=== PATIENT | female | born 1955 | race Caucasian/White ===

== ENCOUNTER 2023-03-25 09:50 | Outpatient (OUT) | payer MEDICARE, OTHER, SELFPAY ==
--- NOTE | 2023-03-25 09:58 | MM_ITS ---
Patient Name: RODRIGO MONTANO MR#: [id number] : 1955 Exam Date: 03/25/2023 Ordering Doctor: DR SUSANNAH CLOUD D.O. RADIOLOGY REPORT PROCEDURE: MM TOMOSYNTHESIS SCREENING BI COMPARISON: MG MAMM SCREEN CURTIS W CAD, 03/08/2020. MG MAMM SCREEN 3D CURTIS CAD, 05/20/2021. INDICATIONS: Screening Calculator Name NCI Breast Cancer Risk Assessment Tool 5 Year Breast Cancer Risk 1.70% Lifetime Breast Cancer Risk 5.00% Personal Breast Cancer No Personal Ovarian Cancer No Treatments None Family Cancers None LOCATION: [facility] BREAST COMPOSITION: Scattered areas fibroglandular density. FINDINGS: DIAGNOSTIC CATEGORY 2--BENIGN FINDING. NO CHANGE FROM COMPARISON. Scattered benign-appearing nodules are present. Scattered benign-appearing calcifications are present. Scattered benign-appearing lymph nodes are present. RIGHT BREAST: No significant suspicious finding. LEFT BREAST: No significant suspicious finding. RECOMMENDATIONS: ROUTINE MAMMOGRAM AND CLINICAL EVALUATION IN 12 MONTHS. PLEASE NOTE: A NORMAL MAMMOGRAM DOES NOT EXCLUDE THE POSSIBILITY OF BREAST CANCER. A CLINICALLY SUSPICIOUS PALPABLE LUMP SHOULD BE BIOPSIED. Dictated by: Ned Loja MD on 03/25/2023 at 12:42 Approved by: Ned Loja MD on 03/25/2023 at 12:44
[2023-03-25 10:40] LABS: Basophils Absolute Auto 0.1 10^3/uL (0.0-0.1); Basophils Percent Auto 0.8 % (0.2-2.0); Eosinophils Absolute Auto 0.1 10^3/uL (0.0-0.7); Eosinophils Percent Auto 1.2 % (0.9-7.0); Hematocrit 41.4 % (36.0-48.0); Hemoglobin 14.1 g/dL (12.0-16.0); Immature Granulocytes Abs Auto 0.02 10^3/uL (0.00-0.03); Immature Granulocytes Pct Auto 0.3 % (0.0-0.5); Lymphocytes Percent Auto 27.1 % (20.5-60.0); Mean Corpuscular HGB Conc 34.1 g/dL (29.9-35.2); Mean Corpuscular Hemoglobin 28.9 pg (26.7-34.0); Mean Corpuscular Volume 84.8 fL (81.0-99.0); Mean Platelet Volume 8.5 fL (9.5-13.5); Monocytes Absolute Auto 0.4 10^3/uL (0.3-0.8); Monocytes Percent Auto 5.8 % (1.7-12.0); Neutrophils Absolute Auto 4.7 10^3/uL (1.4-6.5); Neutrophils Percent Auto 64.8 % (43.0-75.0); Platelet Count 230 10^3/uL (150-450); Red Blood Count 4.88 10^6/uL (4.20-5.40); Red Cell Distribution Width 14.3 % (11.0-15.0); White Blood Count 7.3 10^3/uL (4.0-11.0)
[2023-03-25 10:49] LABS: Estimated Average Glucose 169 mg/dL; Glycohemoglobin A1C 7.5 % (4.5-6.2)
[2023-03-25 11:44] LABS: Alanine Aminotransferase 45 U/L (14-59); Albumin Globulin Ratio 1.1; Albumin Level 4.2 g/dL (3.4-5.0); Alkaline Phosphatase 71 U/L (46-116); Anion Gap 15.6; Aspartate Amino Transferase 26 U/L (15-37); BUN Creatinine Ratio 14.4; Bilirubin Total 0.4 mg/dL (0.2-1.0); Calcium 9.3 mg/dL (8.5-10.1); Carbon Dioxide 26.4 mmol/L (21.0-32.0); Chloride 101 mmol/L (98-107); Chol HDL Ratio 6.2; Cholesterol 271 mg/dL (<=200); Estimated GFR (African America >60 (>=60); Estimated GFR (Non-African Ame 57 (>=60); Globulin 3.8 g/dL; Glucose 177 mg/dL (74-106); HDL Cholesterol 44 mg/dL (40-60); Sodium 139 mmol/L (136-145); Triglycerides 167 mg/dL (<=150); VLDL CHOLESTEROL 33.4 mg/dL
== END 2023-03-25 09:51 | disposition home or self-care (01) ==
LOC: MAMMO 09:50
PROVIDERS: PCP Family Medicine; Visit Provider Family Medicine
DX: Z12.31 Encounter for screening mammogram for malignant neoplasm of breast (principal); N18.30 Chronic kidney disease, stage 3 unspecified; E11.22 Type 2 diabetes mellitus with diabetic chronic kidney disease; I12.9 Hypertensive chronic kidney disease with stage 1 through stage 4 chronic kidney disease, or unspecified chronic kidney disease
CPT/HCPCS: 36415; 77063; 77067; 80053; 80061; 83036; 85025

== ENCOUNTER 2024-11-07 09:34 | Outpatient (OUT) | payer MEDICARE, SELFPAY ==
--- OUTSIDE RECORDS SUMMARY | 2024-05-30 10:45 | XMS_ITS ---
Author Organization [facility] in [place] Address [address] [place] [address] Care Team Providers Care Career Development Manager Name Role Phone Mayur Dubon Primary Care Provider REASON FOR VISIT mwv Encounters Encounter Location Date Provider Diagnosis [facility] [address] [place] [address] 05/30/2024 Mayur Dubon Plan Of Treatment No Information Progress Notes * Stormy MONTANOWillianOB: [birth year] (69 yo F)Acc No.[id number]:05/30/2024 UNLOCKED PROGRESS NOTE Progress Note Patient: Carol PRESCOTT Provider: Su Dubon DO :1955 A ge:69 Y S ex:Female Date:05/30/2024 Address:[address] [place], [place] [id number] Subjective: * Chief Complaints: * 1 . Mwv. * Medical History: Objective: * Vitals: Assessment: Plan: * Treatment: * * Electronic signature of Mynor Dubon DO, [phone] on 11/07/2024 at 09:37 AM EDT Sign off status: Pending Visit Status: C ANC (Cancelled) * Provider: Su Dubon DO Date: 0 05/30/2024 Generated for Printi ng/Faxing/eTransmitting on: 0 11/07/2024 09:37 AM EDT
--- OUTSIDE RECORDS SUMMARY | 2024-06-08 09:49 | XMS_ITS ---
Author Organization [facility] in [place] Address [address] [place] [address] Care Team Providers Care Clearance Diver Name Role Phone Mayur Dubon Primary Care Provider REASON FOR VISIT needs appt Encounters Encounter Location Date Provider Diagnosis [facility] [place] [address] 06/08/2024 Mayur Dubon Plan Of Treatment No Information Progress Notes * Fabio MONTANOOB: [birth year] (69 yo F)Acc No.[id number]:06/08/2024 Patient: Carol PRESCOTT :1955 A ge:69 Y S ex:Female Address:[address] [place] [place] [address], [address] * true * Date: Generated for Angelika porter/Sammie/eTransmitting on: 0 11/07/2024 09:37 AM EDT
--- OUTSIDE RECORDS SUMMARY | 2024-06-15 07:00 | XMS_ITS ---
Author Organization [facility] in [place] Address [address] [place] [address] Care Team Providers Care Sexer Name Role Phone Mayur Dubon Primary Care Provider [phone] Allergies Allergen (clinical drug ingredient) Drug/Non Drug Allergy documented on EMR Reaction Allergy Type Onset Date Status erythromycin Erythromycin Base Unknown Drug Allergy Active angiotensin-converting enzyme inhibitor (FN) MARCELL Inhibitors cough Drug Allergy Acti ve Latex Latex Unknown Allergy Active nickel Nickel Unknown Allergy Active Penicillin Unknown Drug Allergy Active Results Component Value Reference Range Notes HEMOGLOBIN A1C - IN OFFICE Reviewed date:06/15/2024 12:07:55 PM Interpretation:7.1 Performing Lab: Notes/Report: 7.1 HEMOGLOBIN A1C - IN OFFICE 7.1 4.4 - 6.4 Cologuard Reviewed date:08/10/2024 11:42:21 AM Interpretation:negative Performing Lab: Notes/Report: COLOGUARD RESULT REPORTABLE Negative Negative NEGATIVE TEST RESULT. A negative Cologuard result indicates a low likelihood that a colorectal cancer (CRC) or advanced adenoma (adenomatous polyps with more advanced pre-malignant features) is present. The chance that a person with a negative Cologuard test has a colorectal cancer is less than 1 in 1500 (negative predictive value >99.9%) or has an advanced adenoma is less than 5.3% (negative predictive value 94.7%). These data are based on a prospective cross-sectional study of 10,000 individuals at average risk for colorectal cancer who were screened with both Cologuard and colonoscopy. (Hardy Abdi al, N Engl J Med 2014;370(14):1589-4665) The normal value (reference range) for this assay is negative. COLOGUARD RE-SCREENING RECOMMENDATION: Periodic colorectal cancer screening is an important part of preventive healthcare for asymptomatic individuals at average risk for colorectal cancer. Following a negative Cologuard result, the [place] [employer] Society and U.S. Multi-Society Task Force screening guidelines recommend a Cologuard re-screening interval of 3 years. References: [place] [employer] Society Guideline for Colorectal Cancer Screening: https://www.cancer.org/cancer/col rk-qngmln-kngvrc/detection-diagno sis-staging/acs-recommendations.h tml.; Maurice DK, Freddy CR, Emily RiceK, Colorectal Cancer Screening: Recommendations for Physicians and Patients from the U.S. Multi-Society Task Force on Colorectal Cancer Screening , Am J Gastroenterology 2017; 112:2005-1443. TEST DESCRIPTION: Composite algorithmic analysis of stool DNA-biomarkers with hemoglobin immunoassay. Quantitative values of individual biomarkers are not reportable and are not associated with individual biomarker result reference ranges. Cologuard is intended for colorectal cancer screening of adults of either sex, 45 years or older, who are at average-risk for colorectal cancer (CRC). Cologuard has been approved for use by the U.S. FDA. The performance of Cologuard was established in a cross sectional study of average-risk adults aged 50-84. Cologuard performance in patients ages 45 to 49 years was estimated by sub-group analysis of near-age groups. Colonoscopies performed for a positive result may find as the most clinically significant lesion: colorectal cancer [4.0%], advanced adenoma (including sessile serrated polyps greater than or equal to 1cm diameter) [20%] or non- advanced adenoma [31%]; or no colorectal neoplasia [45%]. These estimates are derived from a prospective cross-sectional screening study of 10,000 individuals at average risk for colorectal cancer who were screened with both Cologuard and colonoscopy. (Hardy Abdi al, N Engl J Med 2014;370(14):1457-7432.) Cologuard may produce a false negative or false positive result (no colorectal cancer or precancerous polyp present at colonoscopy follow up). A negative Cologuard test result does not guarantee the absence of CRC or advanced adenoma (pre-cancer). The current Cologuard screening interval is every 3 years. ([place] [employer] Society and U.S. Multi-Society Task Force). Cologuard performance data in a 10,000 patient pivotal study using colonoscopy as the reference method can be accessed at the following location: www.[employer]/results. Additional description of the Cologuard test process, warnings and precautions can be found at www.[employer].com. REASON FOR VISIT [facility] Medications Medication SIG (Take, Route, Frequency, Duration) Notes Start Date End Date Status hydroCHLOROthiazide 12.5 MG TAKE 1 TABLE T BY MOUTH ONCE EVERY MORNING NEEDED Active Fish Oil Active Losartan Potassium 100 MG TAKE 1 TABLET BY MOUTH EVERY DAY Active Alendronate Sodium 70 MG TAKE 1 TABLET B Y MOUTH WITH PLAIN WATER BY MOUTH 30 MIN BEFORE 1ST FOOD/DRINK/MEDICINE OF THE DAY Active Multivitamin Active Drysol 20 % 1 application at bedtime Externally daily prn for 30 days 11/17/2022 Unknown Phentermine HCl 37.5 MG 1 tablet before breakfast Orally Once a day for 30 days 06/15/2024 Active amLODIPine Besylate 5 MG 1 tablet Orally Once a day Active Triamcinolone Acetonide 0.1 % APPLY ONCE EXTERNALLY TWICE A DAY NEEDED for 30 Active Social History Tobacco Use: Social History Observation Description Date Details (start date - stop date) Never Smoker NA - NA Tobacco Use/Smoking Question Answer Notes Patient is a nonsmoker Vital Signs Weight 180.4 lbs 06/15/2024 Height 63 in 06/15/2024 Blood pressure systolic 140 mm Hg 06/15/19 25 Blood pressure diastolic 90 mm Hg 025 Heart Rate 103 /min 06/15/2024 Respiratory Rate 16 /min 06/15/2024 BMI 31.95 kg/m2 06/15/2024 Oximetry 98 % 06/15/2024 Encounters Encounter Location Date Provider Diagnosis [facility] [address] [place] [address] 06/15/2024 Mayur Dubon Encounter for Medica re annual wellness exam Z00.00 ; Abnormal weight gain R63.5 ; Essential (primary) hypertension I10 ; Pure hypercholesterolemia, unspecified E78.00 ; Type 2 diabetes mellitus with diabetic chronic kidney disease E11.22 ; Chronic kidney disease, stage 3 unspecified N18.30 ; Other fatigue R53.83 ; Vitamin D deficiency, unspecified E55.9 ; Encounter for screening for malignant neoplasm of colon Z12.11 ; Other obesity due to excess calories E66.09 ; Body mass index [BMI] 31.0-31.9, adult Z68.31 ; Obesity, class 1 E66.811 ; Other specified disorders of bone density and structure, unspecified site M85.80 ; Encounter for screening mammogram for malignant neoplasm of breast Z12.31 and Asymptomatic menopausal state Z78.0 Assessments Encounter Date Diagnosis (ICD Code) Assessment Notes Treatment Notes Treatment Clinical Notes Section Notes 06/15/2024 Encounter for Medicare annual wellness exam (ICD-10 - Z00.00) set up cologuard diet/exercise rtc 1 year rec chapo yearly rec dexa q2 years rec flu shot yearly rec dtap q10 years rec pn vaccine q5 years rec shingrix rec rsv vaccine labs yearly eye and dental exams yearly 06/15/2024 Abnormal weight gain (ICD-10 - R63.5) oarrs ok diet/exercise rtc 1 month if wishes to continue 06/15/2024 Essential (primary) hypertension (ICD-10 - I10) controlled at home goal <130/80 diet/exercise monitor bmp and urine microalbumin yearly 06/15/2024 Pure hypercholesterole collins, unspecified (ICD-10 - E78.00) labs - change tx based on this diet/exercise LDL goal <70 rec statin uncontrolled 06/15/2024 Type 2 diabetes mellitus with diabetic chronic kidney disease (ICD-10 - E11.22) a1c today uncontrolled eye exam yearly - dilated foot exam daily bs check daily diet/exercise rtc 6 months rec farxiga 06/15/2024 Chronic kidney disease, stage 3 unspecified (ICD-10 - N18.30) monitor bmp rec neph rec farxiga 06/15/2024 Other fatigue (ICD-10 - R53.83) labs - tx if abnormal diet/exercise 06/15/2024 Vitamin D deficiency, unspecified (ICD-10 - E55.9) monitor lab and adjust tx based on results stable 06/15/2024 Encounter for screening for malignant neoplasm of colon (ICD-10 - Z12.11) 06/15/2024 Other obesity due to excess calories (ICD-10 - E66.09) diet/exercise due to HTN/DM - see above 06/15/2024 Body mass index [BMI] 31.0-31.9, adult (ICD-10 - Z68.31) 06/15/2024 Obesity, class 1 (ICD-10 - E66.811) 06/15/2024 Other specified disorders of bone density and structure, unspecified site (ICD-10 - M85.80) 06/15/2024 Encounter for screening mammogram for malignant neoplasm of breast (ICD-10 - Z12.31) 06/15/2024 Asymptomatic menopausal state (ICD-10 - Z78.0) Plan Of Treatment Medication Medication Name Sig Start Date Stop Date Notes hydroCHLOROthiazide 12.5 MG TAKE 1 TABLE T BY MOUTH ONCE EVERY MORNING NEEDED Fish Oil Losartan Potassium 100 MG TAKE 1 TABLET BY MOUTH EVERY DAY Alendronate Sodium 70 MG TAKE 1 TABLET B Y MOUTH WITH PLAIN WATER BY MOUTH 30 MIN BEFORE 1ST FOOD/DRINK/MEDICINE OF THE DAY Phentermine HCl 37.5 MG 1 tablet before breakfast Orally Once a day for 30 days 06/15/2024 amLODIPine Besylate 5 MG 1 tablet Orally Once a day Treatment Notes Assessment Notes Encounter for Medicare annual wellness e xam set up cologuard diet/exercise rtc 1 year rec chapo yearly rec dexa q2 years rec flu shot yearly rec dtap q10 years rec pn vaccine q5 years rec shingrix rec rsv vaccine labs yearly eye and dental exams yearly Abnormal weight gain oarrs ok diet/exercise rtc 1 month if wishes to continue Essential (primary) hypertension controlled at home goal <130/80 diet/exercise monitor bmp and urine microalbumin yearly Pure hypercholesterolemia, unspecified labs - change tx based on this diet/exercise LDL goal <70 rec statin uncontrolled Type 2 diabetes mellitus wit h diabetic chronic kidney disease a1c today uncontrolled eye exam yearly - dilated foot exam daily bs check daily diet/exercise rtc 6 months rec farxiga Chronic kidney disease, stage 3 unspecif ied monitor bmp rec neph rec farxiga Other fatigue labs - tx if abnormal diet/exercise Vitamin D deficiency, unspecified monitor lab and adjust tx based on results stable Other obesity due to excess calories diet/exercise due to HTN/DM - see above Pending Test Test Name Order Date LIPID PANEL (CHOL/TRIG/HDL/LDL) 06/15/19 25 CBC WITH DIFF 06/15/2024 MICROALBUMIN with ALB/CREAT RATIO, URINE (MALB)) 06/15/2024 T3 FREE (T3FR) 06/15/2024 T4 FREE (T4FR) 06/15/2024 TSH 06/15/2024 VITAMIN D, 25 LEVEL (TOTAL) 06/15/2024 DEXA Axial Skeleton (hips, pelvis, spine )* 06/15/2024 VITAMIN B12 LEVEL AND FOLATE (FOLIC ACID ) 06/15/2024 MAMM SCREEN BILAT JYOTHI 3D GLOBAL* 2024 CMP (COMP MET CARRENO) w/eGFR CKD-EPI 2024 Next Appt Details Follow Up: 6 Months, Reason: Progress Notes * Fabio MONTANOOB: [birth year] (69 yo F)Acc No.[id number]:06/15/2024 Progress Note Patient: Carol PRESCOTT Provider: Su Dubon DO :1955 A ge:69 Y S ex:Female Date:06/15/2024 Address:[address] [place], [place] [id number] Check In:10:42 AM ESTCheck O ut:12:12 PM EST Subjective: * Chief Complaints: * M CW * HPI: Nakia nash Annual Wellness Visit: Patient presents today for mwv. Patient states she wants to see about going back on adipex.-MV - - - - - - - - - 03/2023 chapo - normal 03/2023 labs reviewed - cbc normal, A1c 7.5, Cr 0.97, GFR 57, TC 271, TG 167, HDL 44, LDL 194 - - - - - - -- no problems with adipex in the past using treadmill do adipex to mile romero - - - - - - - - no f/c/URI s/s no cough no GERD no dysphagia - - - - - - -- no N/V/D/C/blood no dysuria/hematuria +stress incontinence - - - - - - - - no rashes no vision/hearing problems no CP/SOB/dizzy/palp - - - - - - - bp at home 120-130's/60-70's not checking BS at home - - - - - tolerating all meds without side effects. [place] [facility] [place]? Visual Acuity: N /A. Other Providers of Care: C are Team reviewed with patient: Phillip burr, and updates made in [place] of Care Physical Activity: D o you exercise regularly? Y es T ype of exercise: W janineing F requency: 4 X a week Nutrition/Diet: O n a typical day, how many servings of fruits and vegetables do you consume? 3 I n a typical week, how many servings of fried or high fat (such as cheese, fatty meat) do you consume? 3 I n a typical week, how many servings of high fiber or whole grain foods do you consume? 7 Seat Belt: D o you always use your seat belt in your car??Yes A re you having difficulties driving your car??No C an you get to places out of walking distance without help? Y es Dental: H ow would you describe the condition of your mouth and teeth, including any false teeth or dentures? Cheryl staples good Medication List Follow-Up: D uring the past four weeks, how much bodily pain do you have? N o pain D o you have a current opioid prescription??No Self Assessment of Health: H ow would you rate your overall health the past four weeks? E xcellent H ow confident are you that you can control and manage most of your health problems? Cheryl staples confident H ow have things been going for you during the past four weeks? P retty well D uring the past four weeks, was someone available to help you if you needed and wanted help? Y es, as much as I wanted (Example: if you felt nervous, lonely, or blue; got sick and had to stay in bed; needed someone to talk to; help with daily chores; or needed help just taking care of yourself) D o you have any sexual problems? N o D o you have any troubles eating well? N o D o you have any problems with tiredness or fatigue? N o H ave you noticed any hearing difficulties??Yes Sun Exposure: D o you protect yourself from over exposure to the sun when outdoors? Y es Mental Wellness: D uring the past four weeks, how much have you been bothered by emotional problems such as feeling anxious, depressed, irritable, sad, or downhearted and blue? N ot at all D uring the past four weeks, has your physical and emotional health limited your social activities with family, friends, neighbors, or groups??Not at all Functional Ability and Safety Screening: D o you need assistance with any of the following? Select all that apply. N one D oes your home have rugs in the hallway, lack grab bars in the bathroom, lack handrails on the stairs or have poor lighting? N o D o you feel unsteady and/or dizzy when standing or walking? N o D o you have smoke detectors in your home and routinely change the batteries? N o D o you have a fire extinguisher and know how to use it properly? Y es D o you have any problems with your living situation, food, transportation, utilities, or safety? N o Cognitive Screening: H ave you experienced any memory issues or problems with thinking? N o H ave your family members, friends, caretakers, or others raised any concerns? N o D o you get confused or easily distracted more than you used to? N o H as your ability to concentrate seem to have declined recently? N o End of Life Planning: D o you have a living will? N o D o you have a Durable Power of Software Engineer? N o W ould you like to discuss this topic today??No SDOH A gree to complete Social Determinants of Health questionnaire Y es W ithin the past 12 months, did you worry that your food would run out before you got money to buy more? N o W ithin the past 12 months, did the food you bought just not last and you didn't have money to buy more? N o W ithin the past 12 months, have you ever stayed: outside, in a car, in a a tent, in an overnight custodial, or temporarily in someone else's home??No A re you worried about losing your housing??No W ithin the past 12 months, have you been able to get utilities (heat, electricity) when it was really needed? N o W ithin the past 12 months, has a lack of transportation kept you from medical appointments or from doing things needed for daily living? N o D o you feel physically or emotionally unsafe where you currently live? N o W ould you like help with any of these needs that you have identified? N o D epression Screening: PHQ-2 (2015 Edition) L ittle interest or pleasure in doing things??Not at all F eeling down, depressed, or hopeless? N ot at all T otal Score 0 * ROS: G eneral/Constitutional: Significant change in weight d enies. E xercise Intolerance d enies. N ight sweats d enies. F ever d enies. E yes: Dry eyes D enies. V ision changes d enies. ? E NMT: Sore Throat d enies. N ose Bleeds d enies. D ifficulty hearing d enies. E ar pain d enies. N ose/sinus problems d enies. S noring d enies. B leeding gums d enies. D ry mouth d enies. M outh ulcers denies. O ral abnormalities d enies. T eeth problems d enies. C ardiovascular: Shortness of Breath w/Walking d enies. S hortness of Breath w/lying flat d enies. A rm pain on exertion d enies. C hest pain d enies.?Heart murmur d enies. P alpitations d enies. R espiratory: Coughing up blood d enies. C ough d enies. S hortness of breath d enies. W heezing d enies. G astrointestinal: Change in appetite d enies. V omiting blood d enies. A bdominal pain d enies. C onstipation d enies. D iarrhea d enies. V omiting d enies. G enitourinary: Dysuria/Increased Frequency d enies. H ematuria d enies. I ncontinence , admits. D ifficulty urinating d enies. M usculoskeletal: Swelling in the extremities d enies. A rthralgias/joint pain D enies. B ack pain d enies. W eakness of muscles d enies. M uscle aches d enies. S kin: Jaundice D enies. M ole(s) d enies. R joycelyn d enies. N eurologic: Dizziness d enies. L oss of consciousness d enies.?Numbness d enies. W eakness d enies. H eadache d enies. S eizures d enies. P sychiatric: Alcohol abuse d enies. F eeling safe in relationship?denies. D epression d enies. A nxiety d enies. S leep Disturbances d enies. E ndocrine: Fatigue a dmits. H ematologic/Lymphatic: Swollen Glands d enies. B ruising d enies. ? A llergy/Immunology: Runny nose d enies. S inus pressure d enies. F requent sneezing d enies. H kendall d enies. I tching d enies. * Active Problem List I10 Essential (primary) hypertension Modified On:12/18/2022 Status:confirmed E78.00 Pure hypercholestero lemia, unspecified Modified On:11/17/2022 Status:confirmed E11.22 Type 2 diabetes ye itus with diabetic chronic kidney disease Modified On:11/17/2022 Status:confirmed N18.30 Chronic kidney disea se, stage 3 unspecified Modified On:11/17/2022 Status:confirmed Z68.34 Body mass index [BMI ] 34.0-34.9, adult Modified On:11/17/2022 Status:confirmed E66.9 Obesity, unspecified Modified On:11/17/2022 Status:confirmed E66.09 Other obesity due to excess calories Modified On:03/02/2024 Status:confirmed Z68.31 Body mass index [BMI ] 31.0-31.9, adult Modified On:03/02/2024 Status:confirmed N18.31 Chronic kidney disea se, stage 3a Modified On:03/02/2024 Status:confirmed E55.9 Vitamin D deficiency , unspecified Modified On:06/15/2024 Status:confirmed * Medical History: * Surgical History: c olonoscopy - normal 02/21/15b/l eyelid lifts b/l cataracts 2012uterine mass removed meniscus repair 2020 * Hospitalization/Major Diagno stic Procedure: N o Hospitalization History. * Family History: M other: cva, diagnosed with Unspecified heart disease. F ather: diagnosed with Unspecified heart disease. * Social History: T obacco Use: T obacco Use/Smoking P atient is a n onsmoker H ousehold: H ousehold M arital status: m arried * Medications: T akingAlendronate Sodium 70 MG Tablet TAKE 1 TABLET BY MOUTH WITH PLAIN WATER BY MOUTH 30 MIN BEFORE 1ST FOOD/DRINK/MEDICINE OF THE DAY amLODIPine Besylate 5 MG Tablet 1 tablet Orally Once a day Fish Oil hydroCHLOROthiazide 12.5 MG Tablet TAKE 1 TABLET BY MOUTH ONCE EVERY MORNING NEEDED Losartan Potassium 100 MG Tablet TAKE 1 TABLET BY MOUTH EVERY DAY Multivitamin Triamcinolone Acetonide 0.1 % Cream APPLY ONCE EXTERNALLY TWICE A DAY NEEDED Taking Alendronate Sodium 70 MG Tablet TAKE 1 TABLET BY MOUTH WITH PLAIN WATER BY MOUTH 30 MIN BEFORE 1ST FOOD/DRINK/MEDICINE OF THE DAY Taking amLODIPine Besylate 5 MG Tablet 1 tablet Orally Once a day Taking Fish Oil Taking hydroCHLOROthiazide 12.5 MG Tablet TAKE 1 TABLET BY MOUTH ONCE EVERY MORNING NEEDED Taking Losartan Potassium 100 MG Tablet TAKE 1 TABLET BY MOUTH EVERY DAY Taking Multivitamin Taking Triamcinolone Acetonide 0.1 % Cream APPLY ONCE EXTERNALLY TWICE A DAY NEEDED Not-Taking/PRNPhentermine HCl 37.5 MG Tablet 1 tablet before breakfast Orally Once a day Not-Taking/PRN Phentermine HCl 37.5 MG Tablet 1 tablet before breakfast Orally Once a day UnknownDrysol(Aluminum Chloride) 20 % Solution 1 application at bedtime Externally daily prn Medication List reviewed and reconciled with the patientUnknown Drysol(Aluminum Chloride) 20 % Solution 1 application at bedtime Externally daily prn Medication List reviewed and reconciled with the patient * Allergies: P enicillinLatexNickelErythromycin BaseACE Inhibitors: coughno[Allergies Verified] Objective: * Vitals: W t:180.4lbs, Ht: 63 in, BP:140/90mm Hg, HR:103/min, RR:16/min, BMI:31.95Index, Oxygen sat %:98%, Ht-cm: 160.02 cm, Wt-k.83 kg. * Examination: G eneral Examination: GENERAL APPEARANCE: h ealthy Appearing , well nourished , well developed Level of distress: NAD, a mbulating normally, obese. ENMT: E ACs clear, TMs clear, no hearing loss, no lesions on external ears, nares patent, nasal passages clear, no sinus tenderness, no nasal discharge, no mouth or lip ulcers, no bleeding gums, moist mucous membranes, no erythema, no exudates. HEAD: n ormocephalic, atraumatic. EYES: n on-injected, no discharge, no pallor, PERRLA , EOMI, s clera non-icteric, peripheral vision grossly intact, acuity grossly intact. LUNGS: n o dyspnea, breath sounds normal , good air movement, CTA except as noted, no wheezing, no rales/crackles, no rhonchi. CARDIO: n ot displaced, RRR, S1, S2 normal , no murmurs, rubs, gallops , no carotid bruits, normal throughout. ABDOMEN: n ormal bowel sounds , soft, non tender, not distended, no guarding, no rebound tenderness, no masses, no CVA tenderness, liver non tender, no hepatomegaly. BACK: n ormal curvature. MUSCULOSKELETAL: n ormal motor strength, normal tone, normal movement of all extremities, no bony abnormalities, no contractures, no malalignment, no tenderness. SKIN: n o rash, no lesions, no ulcer, no abnormal nevi, no induration, no nodules, good turgor, no jaundice. EXTREMITIES: No edema. NEUROLOGIC: n ormal gait, normal station, cranial nerves grossly intact, sensation grossly intact, no tremor. PSYCH: j udgement and insight good, active and alert, normal mood, normal affect, orientation to time, to place, to person, recent memory normal, remote memory normal. NECK/THYROID: N robert supple, trachea midline, no masses, FROM, no cervical LAD, no enlargement, non-tender, no nodules. Assessment: * Assessment: 1. E ncounter for Medicare annual wellness exam - Z00.00 (Primary) 2 . A bnormal weight gain - R63.5 3 . E ssential (primary) hypertension - I10 4 . P ure hypercholesterolemia, unspecified - E78.00 5 . T ype 2 diabetes mellitus with diabetic chronic kidney disease - E11.22 6 . C hronic kidney disease, stage 3 unspecified - N18.30 7 . O ther fatigue - R53.83 ?8. V itamin D deficiency, unspecified - E55.9 9 . E ncounter for screening for malignant neoplasm of colon - Z12.11 1 0. O ther obesity due to excess calories - E66.09 1 1. B darrion mass index [BMI] 31.0-31.9, adult - Z68.31 ?12. O besity, class 1 - E66.811 1 3. O ther specified disorders of bone density and structure, unspecified site - M85.80 1 4. E ncounter for screening mammogram for malignant neoplasm of breast - Z12.31 1 5. A symptomatic menopausal state - Z78.0 Plan: * Treatment: 2. A bnormal weight gain Refill Phentermine HCl Tablet, 37.5 MG, 1 tablet before breakfast, Orally, Once a day, 30 days, 30, Refills 0. Notes: oarrs ok diet/exercise rtc 1 month if wishes to continue 3. E ssential (primary) hypertension Continue amLODIPine Besylate Tablet, 5 MG, 1 tablet, Orally, Once a day; C ontinue hydroCHLOROthiazide Tablet, 12.5 MG, TAKE 1 TABLET BY MOUTH ONCE EVERY MORNING NEEDED; C ontinue Losartan Potassium Tablet, 100 MG, TAKE 1 TABLET BY MOUTH EVERY DAY. L AB: CMP (COMP MET CARRENO) w/eGFR CKD-EPI Notes: controlled at home goal <130/80 diet/exercise monitor bmp and urine microalbumin yearly 4. P ure hypercholesterolemia, unspecified Continue Fish Oil. L AB: LIPID PANEL (CHOL/TRIG/HDL/LDL) Notes: labs - change tx based on this diet/exercise LDL goal <70 rec statin uncontrolled 5. T ype 2 diabetes mellitus with diabetic chronic kidney disease L AB: MICROALBUMIN with ALB/CREAT RATIO, URINE (MALB)) L AB: HEMOGLOBIN A1C - IN OFFICE (Collection Date & Time - 06/15/2024) Notes: a1c today uncontrolled eye exam yearly - dilated foot exam daily bs check daily diet/exercise rtc 6 months rec farxiga 6. C hronic kidney disease, stage 3 unspecified Notes: monitor bmp rec neph rec farxiga 7. O ther fatigue L AB: CBC WITH DIFF L AB: T3 FREE (T3FR) L AB: T4 FREE (T4FR) L AB: TSH L AB: VITAMIN B12 LEVEL AND FOLATE (FOLIC ACID) Notes: labs - tx if abnormal diet/exercise 8. V itamin D deficiency, unspecified L AB: VITAMIN D, 25 LEVEL (TOTAL) Notes: monitor lab and adjust tx based on results stable 9. E ncounter for screening for malignant neoplasm of colon L AB: Cologuard 10. O ther obesity due to excess calories Notes: diet/exercise due to HTN/DM - see above 11. O ther specified disorders of bone density and structure, unspecified site Continue Alendronate Sodium Tablet, 70 MG, TAKE 1 TABLET BY MOUTH WITH PLAIN WATER BY MOUTH 30 MIN BEFORE 1ST FOOD/DRINK/MEDICINE OF THE DAY. 12. E ncounter for screening mammogram for malignant neoplasm of breast I maging: MAMM SCREEN BILAT JYOTHI 3D GLOBAL* 13.?Asymptomatic menopausal state?Imaging: DEXA Axial Skeleton (hips, pelvis, spine) Mayur Dubon 07/03/2024 08:24:58 PM EDT >Please call patient to schedule * Labs: * L ab: HEMOGLOBIN A1C - IN OFFICE (Collection Date & Time - 06/15/2024) 7 .1 Value Reference Range H EMOGLOBIN A1C - IN OFFICE 7.1 4.4 - 6.4 * Procedure Codes: G 0439 ANNUAL WELLNESS, [id number] HEMOGLOBIN; GLYCATED, Modifiers: QW * Preventive Medicine: Screenings/Counseling: F ALL RISK SCREENING Fall Risk Assessment: N o falls in the past year Are you afraid of falling? N o * Follow Up: 6 Months * * Sign off status: Completed Visit Status: C HK (Check Out) true * Provider: Su Dubon DO Date: 0 06/15/2024 Generated for Angelika porter/Sammie/Jenna on: 0 11/07/2024 09:37 AM EDT History and Physical Notes * HPI (History of Present Illness) Category Sub-Category Detail Notes Category Not es Medicare Annual Wellness Visit Type of Visit: Subsequent Annual Wellness Visit (SAWV) Cognitive Screening: Have you experience d any memory issues or problems with thinking?: No Have your family members, fr iends, caretakers, or others raised any concerns?: No Do you get confused or easily distracted more than you used to?: No Has your ability to concentrate seem to have declined recently?: No Self Assessment of Health: How would you rate your overall health the past four weeks?: Excellent How confident are you that y ou can control and manage most of your health problems?: Very confident How have things been going f or you during the past four weeks?: Pretty well During the past four weeks, was someone available to help you if you needed and wanted help?: Yes, as much as I wanted (Example: if you felt nervous, lonely, o r blue; got sick and had to stay in bed; needed someone to talk to; help with daily chores; or needed help just taking care of yourself) Do you have any sexual problems?: No Do you have any troubles eating well?: N o Do you have any problems wit h tiredness or fatigue?: No Have you noticed any hearing difficulties?: Yes Physical Activity: Do you exercise regularly?: Y es Type of exercise:: Walking Frequency:: 4X a week Functional Ability and Safety Screening: Do you need assistance with any of the following? Select all that apply.: None Does your home have rugs in the hallway, lack grab bars in the bathroom, lack handrails on the stairs or have poor lighting?: No Do you feel unsteady and/or dizzy when s tanding or walking?: No Do you have smoke detectors in your home and routinely change the batteries?: No Do you have a fire extinguisher and know how to use it properly?: Yes Do you have any problems wit h your living situation, food, transportation, utilities, or safety?: No Visual Acuity: N/A Nutrition/Diet: On a typical day, ho w many servings of fruits and vegetables do you consume?: 3 In a typical week, how many servings of fried or high fat (such as cheese, fatty meat) do you consume?: 3 In a typical week, how many servings of high fiber or whole grain foods do you consume?: 7 Seat Belt: Do you always use your seat belt in your car?: Yes Are you having difficulties driving your car?: No Can you get to places out of walking dis tance without help?: Yes Dental: How would you descri be the condition of your mouth and teeth, including any false teeth or dentures?: Very good Medication List Follow-Up: During the four weeks, how much bodily pain do you have?: No pain Do you have a current opioid prescriptio n?: No Mental Wellness: During the past four weeks, how much have you been bothered by emotional problems such as feeling anxious, depressed, irritable, sad, or downhearted and blue?: Not at all During the past four weeks, has your physical and emotional health limited your social activities with family, friends, neighbors, or groups?: Not at all Sun Exposure: Do you protect yours elf from over exposure to the sun when outdoors?: Yes End of Life Planning: Do you have a living will? : No Do you have a Durable Power of Software Engineer? : No Would you like to discuss this topic tod ay?: No Other Providers of Care: Care Team roney peralta with patient:: Yes, and updates made in [place] [facility] SD[facility] Agree to complete So [facility] Determinants of Health questionnaire: Yes Within the past 12 months, did you worry that your food would run out before you got money to buy more?: No Within the past 12 months, did the food you bought just not last and you didn't have money to buy more?: No Within the past 12 months, have you ever stayed: outside, in a car, in a a tent, in an overnight custodial, or temporarily in someone else's home?: No Are you worried about losing your housing?: No Within the past 12 months, have you been able to get utilities (heat, electricity) when it was really needed?: No Within the past 12 months, has a lack of transportation kept you from medical appointments or from doing things needed for daily living?: No Do you feel physically or emotionally unsafe where you currently live?: No Would you like help with any of these needs that you have identified?: No Depression Screening PHQ-2 (2015 Edition) Little interest or pleasure in doing things?: Not at all Feeling down, depressed, or hopeless?: N ot at all Total Score: 0 Examination Category Sub-Category Detail Notes Category Not es General Examination GENERAL APPEARANCE: healthy Appearing , well nourished , well developed Level of distress: NAD, ambulating normally, obese EYES: non-injected, no dis charge, no pallor, PERRLA , EOMI, sclera non-icteric, peripheral vision grossly intact, acuity grossly intact CARDIO: not displaced, RRR, S1, S2 normal , no murmurs, rubs, gallops , no carotid bruits, normal throughout LUNGS: no dyspnea, breath s ounds normal , good air movement, CTA except as noted, no wheezing, no rales/crackles, no rhonchi ABDOMEN: normal bowel sounds , soft, non tender, not distended, no guarding, no rebound tenderness, no masses, no CVA tenderness, liver non tender, no hepatomegaly NEUROLOGIC: normal gait, normal station, cranial nerves grossly intact, sensation grossly intact, no tremor SKIN: no rash, no lesions, no ulcer, no abnormal nevi, no induration, no nodules, good turgor, no jaundice EXTREMITIES: No edema BACK: normal curvature MUSCULOSKELETAL: normal motor strengt h, normal tone, normal movement of all extremities, no bony abnormalities, no contractures, no malalignment, no tenderness PSYCH: judgement and insigh t good, active and alert, normal mood, normal affect, orientation to time, to place, to person, recent memory normal, remote memory normal ENMT: EACs clear, TMs peter r, no hearing loss, no lesions on external ears, nares patent, nasal passages clear, no sinus tenderness, no nasal discharge, no mouth or lip ulcers, no bleeding gums, moist mucous membranes, no erythema, no exudates HEAD: normocephalic, atrau matic NECK/THYROID: Neck supple, trachea midline, no masses, FROM, no cervical LAD, no enlargement, non-tender, no nodules
--- OUTSIDE RECORDS SUMMARY | 2024-11-07 09:37 | XMS_ITS | Clinical Summary ---
Author Organization [facility] tem Address [id number] [address] [place] [address] Care Team Providers Care Auto Self Service Station Attendant Name Role Phone Ling Mayur Smitha ARCHER Primary Care Provider [phone] Allergies Active Allergy Reactions Criticality Noted Date Comments Erythromycin 12/20/2020 Latex 12/20/2020 Nickel 12/20/2020 Penicillins Anaphylaxis High 12/20/2020 Medications lisinopriL (PRINIVIL,ZESTR IL) 10 mg tablet Take 10 mg by mouth daily. Active alendronate (FOSAMAX) 70 mg tablet Take 70 mg by mouth every 7 days. In a.m. with water on empty stomach, nothing else by mouth and remain upright for 30min Active ascorbic acid, vitamin C, (VITAMIN C) 1000 mg tablet Take 1,000 mg by mouth daily. Active cholecalciferol (VITAMIN D3) 1,000 units tablet Take 1,000 Units by mouth daily. Active zinc gluconate 50 mg tablet Take 50 mg by mouth daily. Active oqogpqtb-eein-B A-calcium &mins (THERAGRAN-M) 9 mg iron-400 mcg tablet Take 1 tablet by mouth daily. Active hydroCHLOROthia zide (HYDRODIURIL) 12.5 mg tablet Take 12.5 mg by mouth as needed. Active Social History Tobacco Use Types Packs/Day Years Used Date Smoking Tobacco: Never Smokeless Tobacco: Never Alcohol Use Standard Drinks/Week Comments Never 0 (1 standard drink = 0.6 oz pur e alcohol) Comments No Sex and Gender Information Value Date Recorded Sex Assigned at Not on file Legal Sex Female 2:25 PM EDT Gender Identity Not on file Sexual Orientation Not on file Last Filed Vital Signs Vital Sign Reading Time Taken Comments Blood Pressure 199/95 01/02/2021 9:[address] AM EDT spoke with Dr Stokes concerning BP Pulse 79 01/02/2021 8:59 AM EDT Temperature 36.7 C (98.1 F) 01/02/2021 8:28 AM EDT Respiratory Rate 18 01/02/2021 8:59 AM EDT Oxygen Saturation 93% 01/02/2021 8:5 9 AM EDT Inhaled Oxygen Concentration - - Weight 85.7 kg (189 lb) 01/02/2021 6:26 AM EDT Height 162.6 cm (5' 4.02 ) 01/02/2021 6 :26 AM EDT Body Mass Index 32.43 01/02/2021 6:26 AM EDT Plan of Treatment Health Maintenance Due Date Last Done Comments Depression Screening 1965 Tobacco Screening 1965 Adult BMI Screening 1971 DTaP,Tdap and Td Vaccines (1 - Tdap) 01/04/1972 Zoster (Shingles) Vaccine (1 of 2) 2003 Fall Risk Screening 2018 COVID-19 Vaccine ( - season) 2023, 09/04/2020 Influenza Vaccine 12/19/2024 Medical Devices Not on file Insurance MEDICARE COMMERCIAL Care Teams Auto Self Service Station Attendant Relationship Specialty Start Date End Date Mayur Dubon DO [address] [place] [address] PCP - General Family Medicine 12/20/20
--- OUTSIDE RECORDS SUMMARY | 2024-11-07 09:37 | XMS_ITS | Patient Health Record ---
Author Organization [facility] [place] Address [address] [place] [address] Care Team Providers Care Customer Data Technician Name Role Phone Mayur Dubon Primary Care Provider Allergies Allergen (clinical drug ingredient) Drug/Non Drug [...] (Hardy Abdi al, N Engl J Med 2014;370(14):2194-9123) The normal value (reference range) for this assay is negative. COLOGUARD RE-SCREENING RECOMMENDATION: Periodic colorectal cancer screening is an important part of preventive healthcare for asymptomatic individuals at average risk for colorectal cancer. Following a negative Cologuard result, the [place] [employer] Society and U.S. Multi-Society Task Force screening guidelines recommend a Cologuard re-screening interval of 3 years. References: [place] [employer] Guideline for Colorectal Cancer Screening: https://www.cancer.org/cancer/col yr-krlafa-kxczuq/detection-diagno sis-staging/acs-recommendations.h tml.; Maurice DK, Freddy NEWMAN, Emily RiceK, Colorectal Cancer Screening: Recommendations for Physicians and Patients from the U.S. Multi-Society Task Force on Colorectal Cancer Screening , Am J Gastroenterology 2017; 112:5890-2703. TEST DESCRIPTION: Composite algorithmic analysis of stool [...] (Hardy Abdi al, N Engl J Med 2014;370(14):8930-1068.) Cologuard may produce a false negative or false positive result (no colorectal cancer or precancerous polyp present at colonoscopy follow up). A negative Cologuard test result does not guarantee the absence of CRC or advanced adenoma (pre-cancer). The current Cologuard screening interval is every 3 years. ([place] [employer] Society and U.S. Multi-Society Task Force). Cologuard performance data in a 10,000 patient pivotal study using colonoscopy as the reference method can be accessed at the following location: www.ObjectWay/results. Additional description of the Cologuard test process, warnings and precautions can be found at www.[employer].rd.Playroll. Reason For Referral No Information Medications Medication SIG (Take, Route, Frequency, Duration) Notes Start Date End Date Status hydroCHLOROthiazide 12.5 MG TAKE 1 TABLE T BY MOUTH ONCE EVERY MORNING NEEDED Active Fish Oil Active Losartan Potassium 100 MG TAKE 1 TABLET BY MOUTH EVERY DAY for 90 Active Drysol 20 % 1 application at bedtime Externally daily prn for 30 days 11/17/2022 Unknown Alendronate Sodium 70 MG TAKE 1 TABLET B Y MOUTH WITH PLAIN WATER BY MOUTH 30 MIN BEFORE 1ST FOOD/DRINK/MEDICINE OF THE DAY for 90 Active Phentermine HCl 37.5 MG 1 tablet before breakfast Orally Once a day for 30 days 06/15/2024 Active Multivitamin Active amLODIPine Besylate 5 MG 1 tablet Orally Once a day Active Triamcinolone Acetonide 0.1 % APPLY ONCE EXTERNALLY TWICE A DAY NEEDED for 30 Active Social History Tobacco Use: Social History Observation Description Date Details (start date - stop date) Never Smoker NA - NA Tobacco Use/Smoking Question Answer Notes Patient is a nonsmoker Problems Problem Type SNOMED Code ICD Code Onset Dates Problem Status W/U Status Risk Notes Problem 05394904 Essential (primary) hypertension (I10) Active confirmed Problem 78889723 Type 2 diabetes mellitus with diabetic chronic kidney disease (E11.22) Active confirmed Problem 66070397 Vitamin D deficiency, unspecified (E55.9) Active confirmed Problem 620666239 Other obesity due to excess calories (E66.09) Active confirmed Problem [id number] Obesity, unspecified (E66.9) Active confirmed Problem 587969866 Pure hypercholesterol emia, unspecified (E78.00) Active confirmed Problem 546682501 Chronic kidney disease, stage 3 unspecified (N18.30) Active confirmed Problem 451630232 Chronic kidney disease, stage 3a (N18.31) Active confirmed Problem 124457557 Body mass index [BMI] 31.0-31.9, adult (Z68.31) Active confirmed Problem 510682925 Body mass index [BMI] 34.0-34.9, adult (Z68.34) Active confirmed Vital Signs Heart Rate 103 /min 06/15/2024 Respiratory Rate 16 /min 06/15/2024 Blood pressure diastolic 90 mm Hg 06/15/2024 Oximetry 98 % 06/15/2024 Height 63 in 06/15/2024 Blood pressure systolic 140 mm Hg 06/15/2024 Weight 180.4 lbs 06/15/2024 BMI 31.95 kg/m2 06/15/2024 Encounters Encounter Location Date Provider Diagnosis [facility] [address] [place] [address] 12/14/2023 Mayur [facility] [address] [place] [address] 02/22/2024 [facility] [address] [place] [address] 02/24/2024 Mayur [facility] [address] [place] [address] 06/08/2024 Mayur [facility] [address] [place] [address] 06/15/2024 Mayur Dubon Encounter for Medica re [...] breast Z12.31 and Asymptomatic menopausal state Z78.0 [facility] [address] [place] [address] 03/02/2024 Mayur Dubon Essential (primary) hypertension I10 ; Other obesity due to excess calories E66.09 ; Body mass index [BMI] 31.0-31.9, adult Z68.31 ; Obesity, class 1 E66.811 ; Abnormal weight gain R63.5 ; Type 2 diabetes mellitus with diabetic chronic kidney disease E11.22 ; Chronic kidney disease, stage 3a N18.31 and Pure hypercholesterolemia, unspecified E78.00 Assessments Encounter Date Diagnosis (ICD Code) Assessment Notes Treatment Notes Treatment Clinical Notes Section Notes 03/02/2024 Essential (primary) hypertension (ICD-10 - I10) controlled at home bp check daily goal <130/80 diet/exercise monitor bmp 03/02/2024 Other obesity due to excess calories (ICD-10 - E66.09) diet/exercise 06/15/2024 Encounter for Medicare annual wellness exam [...] diet/exercise monitor bmp and urine microalbumin yearly 03/02/2024 Body mass index [BMI] 31.0-31.9, adult (ICD-10 - Z68.31) 03/02/2024 Obesity, class 1 (ICD-10 - E66.811) 06/15/2024 Pure hypercholesterole collins, unspecified (ICD-10 - E78.00) labs - change tx based on this diet/exercise LDL goal <70 rec statin uncontrolled 06/15/2024 Type 2 diabetes mellitus with diabetic chronic kidney disease (ICD-10 - E11.22) a1c today uncontrolled eye exam yearly - dilated foot exam daily bs check daily diet/exercise rtc 6 months rec farxiga 03/02/2024 Abnormal weight gain (ICD-10 - R63.5) oarrs ok diet/exercise call in 1 month with weight and we will do erx then of adipex and she will rtc 2 months for her MWV 03/02/2024 Type 2 diabetes mellitus with diabetic chronic kidney disease (ICD-10 - E11.22) rec A1c - she will do with labs with her MWV early in 2024 rec urine microalbumin as well rec bs check daily uncontrolled rec farxiga or ozempic due to DM as well as CKD diet/exercise eye exam yearly - dilated foot exam daily 06/15/2024 Chronic kidney disease, stage 3 unspecified (ICD-10 - N18.30) monitor bmp rec neph rec farxiga 06/15/2024 Other fatigue (ICD-10 - R53.83) labs - tx if abnormal diet/exercise 03/02/2024 Chronic kidney disease, stage 3a (ICD-10 - N18.31) monitor lab bp/bs control neph if worsens rec farxiga 03/02/2024 Pure hypercholesterole collins, unspecified (ICD-10 - E78.00) diet/exercise LDL goal <70 rec statin uncontrolled lab yearly 06/15/2024 Vitamin D deficiency, unspecified (ICD-10 - [...] 06/15/2024 Asymptomatic menopausal state (ICD-10 - Z78.0) 03/02/2024 Other pt to do labs when she comes in for her MWV Plan Of Treatment Pending Test Test Name Order Date LIPID PANEL (CHOL/TRIG/HDL/LDL) 06/15/19 CBC WITH DIFF 06/15/2024 MICROALBUMIN with ALB/CREAT RATIO, URINE (MALB)) 06/15/2024 T3 FREE (T3FR) 06/15/2024 T4 FREE (T4FR) 06/15/2024 TSH 06/15/2024 VITAMIN D, 25 LEVEL (TOTAL) 06/15/2024 DEXA Axial Skeleton (hips, pelvis, spine )* 06/15/2024 Cerumen Removal - performed 11/17/2022 VITAMIN B12 LEVEL AND FOLATE (FOLIC ACID ) 06/15/2024 MAMM SCREEN BILAT JYOTHI 3D GLOBAL* 2024 CMP (COMP MET CARRENO) w/eGFR CKD-EPI 2024 Insurance Providers Payer Name Payer Address Payer Phone Subscriber Number Group Number Insured Name Patient Relationship to Insured Coverage Start Date Coverage End Date [employer]ARE ADV [address] [place], [place] [id number] [place], Carol Self - patient is the insured Medical (General) History Medical History History ICD Code HTN hyperlipidemia osteopenia DM-2 CKD-3 urinary incontinence allergic rhinitis Surgical History Surgery Date(Month/Year) colonoscopy - normal 02/21/15 b/l eyelid lifts b/l cataracts 2012 uterine mass removed 2014 L meniscus repair 2020
[2024-11-07 09:59] LABS: Hematocrit 42.7 % (36.0-48.0); Hemoglobin 14.7 g/dL (12.0-16.0); Immature Granulocytes Abs Auto 0.02 10^3/uL (0.00-0.03); Immature Granulocytes Pct Auto 0.3 % (0.0-0.5); Lymphocytes Absolute Auto 2.0 10^3/uL (1.2-3.8); Mean Corpuscular HGB Conc 34.4 g/dL (29.9-35.2); Mean Corpuscular Hemoglobin 28.7 pg (26.7-34.0); Mean Corpuscular Volume 83.4 fL (81.0-99.0); Platelet Count 239 10^3/uL (150-450); Red Blood Count 5.12 10^6/uL (4.20-5.40); White Blood Count 7.8 10^3/uL (4.0-11.0)
--- NOTE | 2024-11-07 09:59 | MM_ITS ---
Patient Name: RODRIGO MONTANO MR#: [id number] : 1955 Exam Date: 11/07/2024 Ordering Doctor: DR SUSANNAH CLOUD D.O. RADIOLOGY REPORT PROCEDURE: MM TOMOSYNTHESIS SCREENING BI COMPARISON: MM TOMOSYNTHESIS SCREENING BI, 03/25/2023. MG MAMM SCREEN 3D CURTIS CAD, 05/20/2021. MG MAMM SCREEN CURTIS W CAD, 03/08/2020. MG MAMM CURTIS SCRN W CAD DIG, 09/26/2014. INDICATIONS: Screening Calculator Name NCI Breast Cancer Risk Assessment Tool 5 Year Breast Cancer Risk 1.70% Lifetime Breast Cancer Risk 4.70% Personal Breast Cancer No Personal Ovarian Cancer No Treatments None Family Cancers None LOCATION: [facility] BREAST COMPOSITION: There are scattered areas of fibroglandular density. FINDINGS: RIGHT BREAST: No significant suspicious finding. LEFT BREAST: No significant suspicious finding. DIAGNOSTIC CATEGORY 1--NEGATIVE. RECOMMENDATIONS: ROUTINE MAMMOGRAM AND CLINICAL EVALUATION IN 12 MONTHS. PLEASE NOTE: A NORMAL MAMMOGRAM DOES NOT EXCLUDE THE POSSIBILITY OF BREAST CANCER. A CLINICALLY SUSPICIOUS PALPABLE LUMP SHOULD BE BIOPSIED. Dictated by: Drew Garrett MD on 11/07/2024 at 13:34 Approved by: Drew Garrett MD on 11/07/2024 at 13:37
[2024-11-07 10:08] LABS: Microalbum Creatinine Ratio Ur 23.5 mg/g (0.0-29.9)
[2024-11-07 11:56] LABS: Alanine Aminotransferase 42 U/L (14-59); Albumin Globulin Ratio 1.0; Albumin Level 3.9 g/dL (3.4-5.0); Alkaline Phosphatase 77 U/L (46-116); Anion Gap 15.4; Aspartate Amino Transferase 31 U/L (15-37); Blood Urea Nitrogen 13.0 mg/dL (7.0-18.0); Calcium 9.4 mg/dL (8.5-10.1); Carbon Dioxide 26.2 mmol/L (21.0-32.0); Chloride 105 mmol/L (98-107); Cholesterol 234 mg/dL (<=200); Estimated GFR (African America >60 (>=60 mL/min/1.73m^2); Estimated GFR (Non-African Ame >60 (>=60 mL/min/1.73m^2); Free T3 2.63 pg/mL (2.18-3.98); Globulin 3.9 g/dL; Glucose 144 mg/dL (74-106); HDL Cholesterol 44 mg/dL (40-60); Potassium 3.6 mmol/L (3.5-5.1); Sodium 143 mmol/L (136-145); Thyroid Stimulating Hormone 3.138 uIU/mL (0.358-3.740); Total Protein 7.8 g/dL (6.4-8.2); Triglycerides 155 mg/dL (<=150); VLDL CHOLESTEROL 31.0 mg/dL
[2024-11-07 12:23] LABS: Folate 23.80 ng/mL (8.60-58.90)
[2024-11-08 04:08] LABS: Vitamin B12 412 pg/mL (232-1245)
== END 2024-11-07 09:35 | disposition home or self-care (01) ==
LOC: MAMMO 09:35
PROVIDERS: PCP Family Medicine; Visit Provider Family Medicine
DX: Z12.31 Encounter for screening mammogram for malignant neoplasm of breast (principal); Z78.0 Asymptomatic menopausal state; R53.83 Other fatigue; E55.9 Vitamin D deficiency, unspecified; E11.22 Type 2 diabetes mellitus with diabetic chronic kidney disease; E78.00 Pure hypercholesterolemia, unspecified; I10 Essential (primary) hypertension; M85.80 Other specified disorders of bone density and structure, unspecified site
CPT/HCPCS: 36415; 77063; 77067; 77080; 80053; 80061; 82043; 82306; 82570; 82607; 82746; 84439; 84443; 84481; 85025